=== PATIENT | male | born 1935 | race Caucasian/White ===

== ENCOUNTER 2024-11-25 20:28 | Inpatient (IN) | payer OTHER, MEDICARE ==
[2024-11-25 21:01] LABS: Absolute Lymphocytes (CBC) 0.7 K/uL (0.7-4.9); Hematocrit 46.1 % (39.6-49.0); Hemoglobin 15.4 g/dL (13.6-17.9); MCH 31.0 pg (27.0-35.0); MCHC 33.5 g/dL (32.0-36.0); MCV 92.5 fL (80-100); MPV 8.2 fL (7.6-11.3); Nucleated RBC Absolute Count 0.0 (0-0); Nucleated Red Blood Cells % 0.3 % (0-0); RBC Red Blood Cell Count 4.98 M/uL (4.33-5.43); White Blood Count 6.30 thou/uL (4.3-10.9)
[2024-11-25 21:08] LABS: PT Prothrombin Time 15.6 SECONDS (10-13.0); Protime INR 1.39
[2024-11-25 21:16] LABS: Influenza A Ag Negative; Influenza B Ag Negative
[2024-11-25 21:18] LABS: SARS-CoV-2 Antigen Rapid Res Positive (Negative)
[2024-11-25 21:21] LABS: ALT/SGPT 24.0 U/L (16-61); AST/SGOT 42.0 U/L (15-37); Albumin 2.9 g/dL (3.4-5.0); Albumin/Globulin Ratio 0.7 (1.1-1.8); Alkaline Phosphatase 60.0 U/L (45-117); Anion Gap 11.7 mEq/L (5.0-15.0); BUN Blood Urea Nitrogen 23.0 mg/dL (7-18); Bilirubin Indirect, Calculated 0.5 mg/dL (0.2-0.8); Globulin 3.9 g/dL (2.3-3.5); Glucose Level 101.0 mg/dL (74-106); Magnesium 1.9 mg/dL (1.6-2.4); NT PRO-BNP 4784.0 pg/mL (<450); Potassium 3.7 mEq/L (3.5-5.1)
[2024-11-25 21:29] LABS: Troponin High Sensitivity 84.9 pg/mL (<58.9)
[2024-11-25 21:51] LABS: White Blood Cell Scan OK (OK)
[2024-11-25 21:52] LABS: Anisocytosis SLIGHT; Blood Morphology Comment NOTED (NOT SEEN); Macrocytosis SLIGHT; Ovalocytes SLIGHT
[2024-11-25 22:13] LABS: Urine Microscopic Reflex YN NO UMIC
--- NOTE | 2024-11-25 22:30 | RAD REPORT ---
Procedure: Chest Single View HISTORY: Cough COMPARISON: none FINDINGS: The lungs appear clear of acute infiltrate. No significant pleural effusion noted. The heart is moderately enlarged. IMPRESSION: No acute abnormality is displayed.
--- NOTE | 2024-11-26 00:01 | RAD REPORT ---
PROCEDURE: CT Head Without Intravenous Contrast CLINICAL INDICATION: The patient is 89 years old and is Male; general weakness TECHNIQUE: Axial computed tomography images of the head/brain without intravenous contrast. Sagittal and coron al reformatted images were created and reviewed. This CT exam was performed using one or more of the following dose reduction techniques: automated exposure control, adjustment of the mA and/or kV according to patient size, and/or use of iterative reconstruction technique. DLP: 1529 mGy*cm COMPARISON: CT head without contrast dated 06/08/2023. FINDINGS: BRAIN: Cerebral volume loss, chronic small vessel ischemic changes and prior left frontal infarct.. No hemorrhage. No mass effect or midline shift. VENTRICLES: Unremarkable. No ventriculomegaly. BONES/JOINTS: Unremarkable. No acute fracture. SOFT TISSUES: Unremarkable. VASCULATURE: Vascular calcifications. SINUSES: Unremarkable as visualized. No acute sinusitis. MASTOID AIR CELLS: Unremarkable as visualized. No mastoid effusion. ORBITS: Prior cataract surgery. IMPRESSION: 1. No acute intracranial hemorrhage, hydrocephalus or herniation. 2. Cerebral volume loss, chronic small vessel ischemic changes and prior left frontal infarct.. C onsider MRI brain for further evaluation. Electronically signed by: Preston Saxena DO 11/25/2024 11:56 PM CDT RP 9 Due to temporary technical issues with the PACS/HALKAR reporting system, reports are being amrit d by the in-house radiologist without review as a courtesy to ensure prompt reporting the interpreting radiologist is fully responsible for the content of the report. Transcribed Date/Time: 11/26/2024 12:01 AM
--- NOTE | 2024-11-26 00:10 | ER ---
Nurse's Notes [facility] Name: Adarsh Steele Age: 89 yrs Sex: Male : 1935 Arrival Date: 11/25/2024 Time: 20:28 Bed 3 Private MD: Diagnosis: SARS-associated coronavirus as the cause of diseases classified elsewhere;Weakness Presentation: 11/25 20:56 Chief complaint: Spouse and/or significant other states: c/o cough, sneezing, weakness al5 since last night. Coronavirus screen: cough unrelated to allergies, sneezing, generalized weakness. Ebola Screen: No symptoms or risks identified at this time. Initial Sepsis Screen: Does the patient meet any 2 criteria? No. Patient's initial sepsis screen is negative. Does the patient have a suspected source of infection? No. Patient's initial sepsis screen is negative. Risk Assessment: Do you want to hurt yourself or someone else? Patient reports no desire to harm self or others. Onset of symptoms was November 24, 2024. 20:56 Method Of Arrival: Wheelchair al5 20:56 Acuity: CAREY 3 al5 Triage Assessment: 20:58 General: Appears in no apparent distress. comfortable, Behavior is calm, cooperative. al5 Pain: Denies pain. EENT: No signs and/or symptoms were reported regarding the EENT system. Neuro: Level of Consciousness is awake, alert, obeys commands, Oriented to person, place, time, situation, Vet Assistant are equal bilaterally Moves all extremities. Weakness Gait is unsteady, Speech is normal, Facial symmetry appears normal. Cardiovascular: Heart tones S1 S2 present Capillary refill < 3 seconds Patient's skin is warm and dry. Rhythm is atrial fibrillation. Respiratory: Reports cough that is non-productive, Airway is patent Respiratory effort is even, unlabored, Respiratory pattern is regular, symmetrical, Breath sounds are clear bilaterally. Onset: The symptoms/episode began/occurred yesterday, the patient has mild shortness of breath. GI: Abdomen is flat, non-distended. : No signs and/or symptoms were reported regarding the genitourinary system. Derm: Skin is intact, Skin is pink, warm \T\ dry. normal. Musculoskeletal: Circulation, motion, and sensation intact. Range of motion: intact in all extremities. Historical: - Allergies: 20:58 No Known Allergies; al5 - PMHx: 20:58 Atrial fibrillation; Hypercholesterolemia; Cerebrovascular accident; Seizure; al5 - PSHx: 20:58 None; al5 - Immunization history:: Adult Immunizations up to date. - Infectious Disease History:: Denies. - Social history:: Smoking status: Patient denies any tobacco usage or history of. Screenin:02 [facility] ED Fall Risk Assessment (Adult) History of falling in the last 3 months, al5 including since admission No falls in past 3 months (0 pts) Confusion or Disorientation No (0 pts) Intoxicated or Sedated No (0 pts) Impaired Gait Yes (1 pt) Mobility Assist Device Used Yes (1 pt) Altered Elimination No (0 pt) Score/Fall Risk Level 0 - 2 = Low Risk Oriented to surroundings, Maintained a safe environment, Hourly rounding (assess needs \T\ fall precautionary measures) done. Abuse screen: Denies threats or abuse. Denies injuries from another. Nutritional screening: No deficits noted. Tuberculosis screening: No symptoms or risk factors identified. Assessment: 21:02 Reassessment: see triage assessment. al5 22:09 Reassessment: Patient appears in no apparent distress at this time. No changes from al5 previously documented assessment. Patient and/or family updated on plan of care and expected duration. Pain level reassessed. Patient is alert, oriented x 3, equal unlabored respirations, skin warm/dry/pink. 23:31 Reassessment: Patient appears in no apparent distress at this time. No changes from al5 previously documented assessment. Patient and/or family updated on plan of care and expected duration. Pain level reassessed. Patient is alert, oriented x 3, equal unlabored respirations, skin warm/dry/pink. 17 00:47 Reassessment: Patient appears in no apparent distress at this time. No changes from al5 previously documented assessment. Patient and/or family updated on plan of care and expected duration. Pain level reassessed. Patient is alert, oriented x 3, equal unlabored respirations, skin warm/dry/pink. 01:30 Reassessment: Patient appears in no apparent distress at this time. No changes from al5 previously documented assessment. Patient and/or family updated on plan of care and expected duration. Pain level reassessed. Patient is alert, oriented x 3, equal unlabored respirations, skin warm/dry/pink. Vital Signs: 11/25 20:56 BP 171 / 88; Pulse 63; Resp 20; Temp 98.5(O); Pulse Ox 96% on R/A; Weight 95.25 kg; al5 Height 6 ft. 2 in. ; 21:00 BP 152 / 80; Pulse 60; Resp 19; Pulse Ox 95% on R/A; al5 21:30 BP 164 / 72; Pulse 63; Resp 19; Pulse Ox 96% on R/A; al5 22:00 BP 156 / 79; Pulse 61; Resp 20; Pulse Ox 96% on R/A; al5 22:30 BP 154 / 87; Pulse 55; Resp 16; Pulse Ox 96% on R/A; al5 23:10 BP 128 / 63; Pulse 67; Resp 20; Pulse Ox 96% on R/A; al5 23:30 BP 155 / 82; Pulse 70; Resp 18; Pulse Ox 97% on R/A; al5 11/26 00:00 BP 143 / 71; Pulse 60; Resp 18; Pulse Ox 96% on R/A; al5 00:30 BP 129 / 63; Pulse 71; Resp 17; Pulse Ox 95% on R/A; al5 01:00 BP 144 / 79; Pulse 69; Resp 20; Pulse Ox 95% ; al5 01:30 BP 150 / 92; Pulse 68; Resp 18; Pulse Ox 97% on R/A; al5 11/25 20:56 Body Mass Index 26.96 (95.25 kg, 187.96 cm) al5 ED Course: 11/25 20:30 Patient arrived in ED. jj6 20:34 Cesar Escobedo PA is PHCP. cp 20:34 Jc Santillan DO is Attending Physician. cp 20:34 Silvana Stephens, CANDICE is Primary Nurse. al5 20:58 Triage completed. al5 20:58 Arm band placed on right wrist. Patient placed in the treatment room, in view of staff al5 members, on monitoring analyst, on pulse oximetry. 21:02 Patient has correct armband on for positive identification. Bed in low position. Call al5 light in reach. Side rails up X 1. Provided Education on: plan of care. 21:02 No provider procedures requiring assistance completed. Inserted saline lock: 20 gauge al5 in right forearm, using aseptic technique. ,using aseptic technique. done by CANDICE Buchanan Blood collected. Flushed with 10 mL NS. 22:00 XRAY Chest (1 view) In Process Unspecified. EDMS 23:00 CT Head Brain wo Cont In Process Unspecified. EDMS 23:00 CT Chest For PE Angio In Process Unspecified. EDMS 11/26 00:09 Andrea Puri, CANDICE is Hospitalizing Provider. cp 01:40 Patient admitted, IV remains in place. al5 Administered Medications: No medications were administered Medication: 11/25 21:02 VIS not applicable for this client. al5 Outcome: 11/26 00:10 Decision to Hospitalize by Provider. cp 01:40 Admitted to Tele accompanied by nurse, family with patient, via stretcher, room 401, al5 with chart, :40 Condition: stable 01:40 Instructed on the need for admit, 02:23 Patient left the ED. al5 Signatures: Dispatcher [employer] EDMD Cesar Escobedo PA-C PA-C cp Jeffries, Jennifer jj6 Silvana Stephens RN RN al5 Corrections: (The following items were deleted from the chart) 02:23 02:21 Admitted to Tele accompanied by nurse, family with patient, via stretcher, room al5 401, with chart, al5 02:23 02:21 Condition: stable al5 al5 02:23 02:21 Instructed on the need for admit, al5 al5
--- NOTE | 2024-11-26 00:10 | EDPHYS ---
Physician Documentation [facility] Name: Adarsh Steele Age: 89 yrs Sex: Male : 1935 Arrival Date: 11/25/2024 Time: 20:28 Bed 3 Private MD: ED Physician Jc Santillan HPI: 11/25 20:45 This 89 yrs old Male presents to ER via Wheelchair with complaints of Shortness Of cp Breath, Cough, Congestion, Weakness. 20:45 The patient has shortness of breath with light activity. Onset: The symptoms/episode cp began/occurred this morning. Associated signs and symptoms: Pertinent positives: cough, chest congestion, general weakness. 20:45 Duration: The symptoms are continuous, and are steadily getting worse. Severity of cp symptoms: in the emergency department the symptoms are unchanged despite home interventions. Historical: - Allergies: 20:58 No Known Allergies; al5 - PMHx: 20:58 Atrial fibrillation; Hypercholesterolemia; Cerebrovascular accident; Seizure; al5 - PSHx: 20:58 None; al5 - Immunization history:: Adult Immunizations up to date. - Infectious Disease History:: Denies. - Social history:: Smoking status: Patient denies any tobacco usage or history of. ROS: 20:50 Neuro: Positive for weakness, Negative for altered mental status, dizziness, headache, cp syncope, 20:50 Eyes: Negative for injury, pain, redness, and discharge, cp 20:50 Constitutional: Negative for fever, poor PO intake, 20:50 ENT: Negative for drainage from ear(s), ear pain, sore throat, difficulty swallowing, difficulty handling secretions, 20:50 Cardiovascular: Negative for chest pain, palpitations, 20:50 Respiratory: Positive for cough, "sounds productive", shortness of breath, 20:50 Abdomen/GI: Negative for abdominal pain, vomiting, diarrhea, constipation, 20:50 Skin: Negative for cellulitis, rash, 20:50 All other systems are negative, Exam: 20:50 ECG was reviewed by the Attending Physician. cp 20:55 Head/Face: Normocephalic, atraumatic. cp 20:55 Constitutional: The patient appears in no acute distress, alert, awake, non-diaphoretic, non-toxic, well developed, well nourished, 20:55 Eyes: Periorbital structures: appear normal, Conjunctiva: normal, no exudate, no injection, Sclera: no appreciated abnormality, Lids and lashes: appear normal, bilaterally, 20:55 ENT: External ear(s): are unremarkable, Nose: is normal, Mouth: Lips: dry, Oral mucosa: moist, Posterior pharynx: Airway: no evidence of obstruction, patent, erythema, is not appreciated, exudate, is not appreciated, 20:55 Neck: ROM/movement: is normal, is supple, without pain, no range of motions limitations, no meningismus, 20:55 Chest/axilla: Inspection: normal, 20:55 Cardiovascular: Rate: normal, Rhythm: irregular, Edema: ankle edema, that is very mild, JVD: is not appreciated, 20:55 Respiratory: the patient does not display signs of respiratory distress, Respirations: labored breathing, is not present, shallow respirations, are not present, Breath sounds: bronchial sounds, that are mild, are heard diffusely, stridor, is not appreciated, wheezing: is not appreciated, 20:55 Abdomen/GI: Inspection: abdomen appears normal, Palpation: abdomen is soft and non-tender, in all quadrants, 20:55 Back: pain, is absent, ROM is normal, 20:55 Skin: cellulitis, is not appreciated, no rash present. 20:55 Neuro: Orientation: to person, place \\T\\ time. Mentation: is normal, Motor: moves all fours, strength is normal, Sensation: is normal, Gait: is unsteady, Vital Signs: 20:56 BP 171 / 88; Pulse 63; Resp 20; Temp 98.5(O); Pulse Ox 96% on R/A; Weight 95.25 kg; al5 Height 6 ft. 2 in. ; 21:00 BP 152 / 80; Pulse 60; Resp 19; Pulse Ox 95% on R/A; al5 21:30 BP 164 / 72; Pulse 63; Resp 19; Pulse Ox 96% on R/A; al5 22:00 BP 156 / 79; Pulse 61; Resp 20; Pulse Ox 96% on R/A; al5 22:30 BP 154 / 87; Pulse 55; Resp 16; Pulse Ox 96% on R/A; al5 23:10 BP 128 / 63; Pulse 67; Resp 20; Pulse Ox 96% on R/A; al5 23:30 BP 155 / 82; Pulse 70; Resp 18; Pulse Ox 97% on R/A; al5 11/26 00:00 BP 143 / 71; Pulse 60; Resp 18; Pulse Ox 96% on R/A; al5 00:30 BP 129 / 63; Pulse 71; Resp 17; Pulse Ox 95% on R/A; al5 01:00 BP 144 / 79; Pulse 69; Resp 20; Pulse Ox 95% ; al5 01:30 BP 150 / 92; Pulse 68; Resp 18; Pulse Ox 97% on R/A; al5 11/25 20:56 Body Mass Index 26.96 (95.25 kg, 187.96 cm) al5 MDM: 11/25 22:48 Medical Screening Exam initiated 11/26 00:10 Data reviewed: vital signs, nurses notes, lab test result(s), EKG, radiologic studies, cp CT scan, plain films, and as a result, I will admit patient. 00:10 I considered the following discharge prescriptions or medication management in the emergency department Medications were administered in the Emergency Department. See MAR. Independent interpretation of the following test(s) in the Emergency Department EKG: See my EKG interpretation above. 00:10 Counseling: I had a detailed discussion with the patient and/or guardian regarding the historical points, exam findings, and any diagnostic results supporting the discharge/admit diagnosis, lab results, radiology results. 00:10 Differential diagnosis: CHF exacerbation, Chronic Obstructive Pulmonary Disease cp Myocardial Infarction pneumonia, Pneumothorax pulmonary edema, Pulmonary Embolism Sepsis Unstable Angina. ED course: Vital signs stable. Initial and repeat troponins positive but no significant increase in the second troponin. Discussed these findings with the hospitalist, Mr Puri, who will admit for continued monitoring and trending of troponin. 11/25 20:43 Order name: Basic Metabolic Panel; Complete Time: 21:31 11/25 21:31 Interpretation: Normal except: CL 109; BUN 23; GFR 70. 11/25 20:43 Order name: CBC with Diff; Complete Time: 22:05 cp 11/25 20:43 Order name: LFT's; Complete Time: 21:31 cp 11/25 20:43 Order name: Magnesium; Complete Time: 21:31 cp 11/25 20:43 Order name: NT PRO-BNP; Complete Time: 21:31 cp 11/25 20:43 Order name: PT-INR; Complete Time: 21:31 cp 11/25 20:43 Order name: Troponin HS; Complete Time: 21:31 cp 11/25 20:43 Order name: COVID-19 Ag + Flu A+B Ag; Complete Time: 21:31 cp 11/25 20:43 Order name: UA Rfx Krishna Cult if indicated; Complete Time: 22:41 cp 11/25 20:43 Order name: Lactate w/ 2H reflex if indic.; Complete Time: 22:05 cp 11/25 21:04 Order name: CBC Smear Scan; Complete Time: 22:05 EDMS 11/25 21:32 Order name: D-Dimer; Complete Time: 22:05 cp 11/25 23:04 Order name: Troponin High Sensitivity; Complete Time: 00:04 cp 11/26 00:04 Interpretation: Reviewed. cp 11/26 01:07 Order name: C-Reactive Protein EDMS 11/26 01:07 Order name: C-Reactive Protein EDMS 11/26 01:07 Order name: C-Reactive Protein EDMS 11/26 01:07 Order name: CBC with Automated Diff EDMS 11/26 01:07 Order name: CBC with Automated Diff EDMS 11/26 01:07 Order name: CBC with Automated Diff EDMS 11/26 01:07 Order name: CBC with Automated Diff EDMS 11/26 01:12 Order name: Comprehensive Metabolic Panel EDMS 11/26 01:12 Order name: Comprehensive Metabolic Panel EDMS 11/26 01:12 Order name: Comprehensive Metabolic Panel EDMS 11/26 01:12 Order name: Comprehensive Metabolic Panel EDMS 11/26 01:12 Order name: Troponin High Sensitivity EDMS 11/26 01:12 Order name: Troponin High Sensitivity EDMS 11/26 01:12 Order name: Troponin High Sensitivity EDMS 11/26 01:12 Order name: Troponin High Sensitivity EDMS 11/25 20:43 Order name: XRAY Chest (1 view); Complete Time: 22:41 cp 11/25 22:06 Order name: CT Head Brain wo Cont cp 11/25 22:06 Order name: CT Chest For PE Angio cp 11/25 20:43 Order name: EKG; Complete Time: 20:44 cp 11/26 01:04 Order name: Physical Therapy Consult EDMS 11/26 01:12 Order name: EKG Electrocardiogram [facility] 11/26 01:12 Order name: EKG Electrocardiogram [facility] 11/26 01:12 Order name: EKG Electrocardiogram [facility] 11/26 01:12 Order name: EKG Electrocardiogram [facility] 11/25 20:43 Order name: Cardiac monitoring; Complete Time: 21:03 11/25 20:43 Order name: EKG - Nurse/Tech; Complete Time: 21:03 11/25 20:43 Order name: IV Saline Lock; Complete Time: 21:03 11/25 20:43 Order name: Labs collected and sent; Complete Time: 21:03 11/25 20:43 Order name: O2 Per Protocol; Complete Time: 21:03 11/25 20:43 Order name: O2 Sat Monitoring; Complete Time: 21:03 EC/16 20:50 Rate is 87 beats/min. Rhythm is irregular. QRS interval is prolonged at 162 msec. QT cp interval is normal. Clinical impression: Atrial Fibrillation. Interpreted by me. Reviewed by me. Administered Medications: No medications were administered Disposition: 11/26 02:40 I was immediately available on-site in the Emergency Department for consultation in the ms3 care of the patient. Disposition Summary: 11/26/24 00:10 Hospitalization Ordered Notes: Hospitalization Status: Inpatient Admission cp Provider: Andrea Puri cp Location: Telemetry/MedSurg (Inpatient) cp Condition: Stable cp Problem: new cp Symptoms: have improved cp Bed/Room Type: Standard Room Assignment: 401(11/26/24 01:06) rv1 Diagnosis - SARS-associated coronavirus as the cause of diseases classified elsewhere cp - Weakness cp Forms: - Medication Reconciliation Form cp - SBAR form cp - Leadership Thank You Letter cp Signatures: Dispatcher [employer] EDMS Cesar Escobedo PA-C PA-C cp Sims, Marcus, DO DO ms3 Rebecca Wray rv1 Silvana Stephens RN RN al5 Corrections: (The following items were deleted from the chart) 11/25 20:44 20:44 BASIC METABOLIC PANEL+C.LAB.BRZ ordered. EDMS EDMS 20:44 20:44 CBC+H.LAB.BRZ ordered. EDMS EDMS 20:44 20:44 HEPATIC FUNCTION+C.LAB.BRZ ordered. EDMS EDMS 20:44 20:44 MAGNESIUM+C.LAB.BRZ ordered. EDMS EDMS 20:44 20:44 PROBNP+C.LAB.BRZ ordered. EDMS EDMS 20:44 20:44 PROTIME (+INR)+COAG.LAB.BRZ ordered. EDMS EDMS 20:44 20:44 Troponin High Sensitivity+C.LAB.BRZ ordered. EDMS EDMS 20:44 20:44 COVID-19 Ag + Flu A+B Ag+I.LAB.BRZ ordered. EDMS EDMS 20:44 20:44 UA Rfx Krishna Cult if indicated+U.LAB.BRZ ordered. EDMS EDMS 20:44 20:44 LACTATE+C.LAB.BRZ ordered. EDMS EDMS 11/26 01:06 00:10 cp rv1
--- NOTE | 2024-11-26 00:39 | RAD REPORT ---
EXAM DESCRIPTION: CT CHEST ANGIOGRAPHY WITH IV CONTRAST CLINICAL HISTORY: 89 years Male Shortness of breath. COMPARISON: Radiograph of Chest performed on the same day and 02/04/2024 (Report only). TECHNIQUE: Images were obtained in axial, sagittal and coronal planes. Intravenous contrast was administered. 3- D MIP imaging was performed. This exam was performed according to our departmental dose-optimization program which includes use of Automated Exposure Control, adjustment of the mA and/ or kV according to patient size and/or use of iterative reconstruction technique. FINDINGS: No filling defects pulmonary arteries bilaterally. Aortic root is dilated measuring 4.5 cm in transve rse dimension. No aortic dissection. No right heart strain. Enlarged heart. No pericardial or pleural effusions bilaterally. No adenopathy. No lung parenchymal infiltrates or nodules seen. Airspace attenuation lower lobes bilaterally consist ent with atelectatic change. No pneumothorax. No lung parenchymal nodules seen. Increased pulmonary vascularity. No acute osseous abnormality. Unremarkable upper abdomen. IMPRESSION: No evidence for pulmonary embolus. 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 Atelectatic change lower lobes bilaterally. Electronically signed by: Amie Cummings MD 11/26/2024 12:16 AM CDT RP Due to temporary technical issues with the PACS/[employer] reporting system, reports are being amrit d by the in-house radiologist without review as a courtesy to ensure prompt reporting the interpreting radiologist is fully responsible for the content of the report. Transcribed Date/Time: 11/26/2024 12:39 AM
[2024-11-26] MEDS ORDERED: ALBUTEROL 2.5 MG/3 ML NEB SOL NEB PRN (01:05)
--- NOTE | 2024-11-26 01:44 | P.HP ---
Certification for Inpatient Patient admitted to: Inpatient With expected LOS: >2 Midnights Patient will require the following post-hospital care: None Practitioner: I am a practitioner with admitting privileges, knowledge of patient current condition, hospital course, and medical plan of care. Services: Services provided to patient in accordance with Admission requirements found in Title 42 Section 412.3 of the Code of Federal Regulations Patient History Date of Service: 11/26/24 Reason for admission: COVID-19 positive, and body weakness History of Present Illness: Patient is a pleasant 89 years old male with past medical history of diastolic CHF, essential hypertension, seizure disorder, hypercholesteremia, right arm essential tremors, brought to the ER due to body weakness, sneezing, and coughing nonproductive, with no associated chest pain. According to patient present at bedside, she states patient started coughing and sneezing yes terday nonproductive cough, with no associated shortness of breath, or chest pain, states today when patient attempted to get out of bed he was so weak, states that was out of the ordinary for the patient which then prompted her to bring the patient to the ER. Patient tested COVID- 19 positive. During admission assessment, patient denies of any chest pain, shortness of breath, patient respirations even and nonlabored, no tachycardia, lungs bilateral with no adventitious breath sounds, O2 saturation room air 96%-97%. Patient initial troponin was 84.0, BNP 4784, and EKG with no ST abnormalities. It is unsure if patient elevated troponin is more of a demand and supply related. (1) course in the ER: (1) CT head without intravenous contrast. Impression: (A) No acute intracranial hemorrhage, hydrocephalus or herniation. (B) Cerebral volume loss, chronic small vessel ischemic changes and prior left frontal infarct. Consider MRI brain for further evaluation. (2) CT chest angiography with IV contrast. Impression: (1) no evidence of pulmonary embolus. Dilated aortic root with no evidence of aortic dissection. Enlarged heart with mild congestive heart failure. Atelectatic change lower lobes bilateral. (3)Chest x- ray. Impression: No acute abnormality is displayed. Allergies No Known Allergies Allergy (Unverified 11/26/24 02:19) Home medications list reviewed: No - Past Medical/Surgical History Diabetic: No -: Atrial fibrillation. -: Diastolic CHF -: Seizure. -: Hypercholesteremia -: Stroke. -: Right shoulder surgery. - Family History Mother -: Cancer Brother -: Heart disease (Heart failure.), Hypertension - Social History Smoking Status: Never smoker Alcohol use: Yes CD- Drugs: No Caffeine use: Yes Place of Residence: Home Review of Systems 10-point ROS is otherwise unremarkable Respiratory: Cough (Nonproductive.), Other (Pulmonary congestion.) Physical Examination - Physical Exam General: Alert, In no apparent distress, Oriented x3, Cooperative HEENT: Atraumatic, Normocephalic, PERRLA, Other (Dry mucous membrane.), Sclerae nonicteric Neck: Supple, 2+ carotid pulse no bruit, No LAD, Without JVD or thyroid abnormality Respiratory: Clear to auscultation bilaterally, Normal air movement Cardiovascular: No edema, No gallops, No rubs, No murmurs, Irregular heart rate/rhythm (History of atrial fibrillation.) Capillary refill: <2 Seconds Gastrointestinal: Normal bowel sounds, Soft and benign, W/out hepatomegaly, No ascites, No tenderness, No masses, No rebound, No guarding Musculoskeletal: No clubbing, No swelling, No contractures, No erythema, No tenderness, No warmth, Other (Left arm essential tremor.) Integumentary: No rashes, No breakdown, No significant lesion, No tenderness/swelling, No erythema, No warmth, No cyanosis Neurological: Other (Body weakness, left arm essential tremor.) Lymphatics: No axilla or inguinal lymphadenopathy - Studies Laboratory Data (last 24 hrs) 11/25/24 11/25/24 11/25/24 20:46 20:46 20:46 WBC 6.30 Hgb 15.4 Hct 46.1 Plt Count 82 L PT 15.6 H INR 1.39 Sodium 140 Potassium 3.7 BUN 23 H Creatinine 1.03 Glucose 101 Magnesium 1.9 Total Bilirubin 0.7 AST 42 H ALT 24 Alkaline Phosphatase 60 Male Exam - Male Exam Inguinal exam: No hernias Assessment and Plan - Plan Patient is an 89-year-old male brought to the ER due to body weakness, coughing, sneezing, with no associated chest pain. Patient room air O2 sat is 96% to 97%. Patient admitted inpatient with diagnosis of COVID 19 positive, and body weakness. (1) COVID-19 positive. Patient not tachypneic, or respiratory distress. Respirations even and unlabored. Lungs bilateral with no adventitious breath sounds. -Order Paxlovid 150-100 milligram pack 2 tabs twice daily. -Albuterol inhaler 2 puffs every 6 hours as needed. -Oxygen supplement as needed if patient O2 saturation below 92%. -Remdesivir not appreciated at this time, patient is not hypoxic, no acute respiratory distress, bilateral lungs with no adventitious breath sounds. (2)Chronic diastolic CHF/Essential hypertension. -Continue home medication carvedilol 6.25 mg p.o. twice daily. -Continue spironolactone 12.5 mg p.o. daily. -Continue olmesartan 5 mg p.o. daily. (3)Chronic atrial fibrillation. -Eliquis 5 mg p.o. twice daily. (4)Chronic hypercholesteremia. -Continue atorvastatin 80 mg p.o. nightly. (5)Chronic seizure disorder. -Continue home medication divalproex sodium 500 mg p.o. twice daily. -Continue home medication zonisamide 100 mg p.o. 3 tablets every afternoon. (6)Eevated troponin with no associated chest pain, and EKG with no ST abnormality. -Order for troponin every 8 hours x 3. -Order EKG every 8 x 3. -Telemetry. -Continue to monitor patient for any change of condition. -Consult machine shop supervisor. -Morphine 2 mg IV as needed every 4 hours (7)Explained the entire treatment plan to the patient, , and daughter present at the bedside, solicit questions answered and voiced understanding. Discharge Plan: Home Plan to discharge in: 72 Hours - Advance Directives Does patient have a Living Will: No Does patient have a Durable POA for Healthcare: No - Code Status/Comfort Care Code Status Assessed: Yes Code Status: Full Code Critical Care: No Time Spent Managing Pts Care (In Minutes): 55
[2024-11-26] MEDS ORDERED: ALBUTEROL INHALER 200 PUFF/6.7 GM IH PRN (02:03)
[2024-11-26] MEDS: D5 0.45 NS 1,000 ML IV SCH (02:44)
[2024-11-26] MEDS ORDERED: MORPHINE 2 MG/ML SYR IV PRN (02:53)
[2024-11-26] MEDS: DIVALPROEX DR 500MG TAB PO SCH (09:49)
[2024-11-26] MEDS: APIXABAN 5 MG TABLET PO SCH (09:49)
[2024-11-26] MEDS: SPIRONOLACTONE 25 MG TABLET PO SCH (09:50)
[2024-11-26] MEDS: VALSARTAN 40 MG TAB PO SCH (09:53)
[2024-11-26] MEDS: NIRMATRELVIR/RITONAVIR TABLET PO SCH (09:54)
--- NOTE | 2024-11-26 15:45 | P.PN ---
Date of Service: 11/26/24 Patient seen and evaluated. Patient denied any shortness of breath. He feels he is getting stronger. He is stable on room air with good oxygen saturation. Plan: Continue Paxlovid Monitor respiratory status PT consult to evaluate functional status and for discharge planning. Continue home medications for seizures and hypertension. Continue Farxiga.
[2024-11-26] MEDS: ACETAMINOPHEN 325 MG TABLET PO PRN (20:06)
[2024-11-26] MEDS: ATORVASTATIN 80 MG TAB PO SCH (20:07)
--- NOTE | 2024-11-26 21:22 | CON ---
Date of Consultation: 11/26/2024 Reason For Consultation: Positive troponin. History Of Present Illness: An 89-year-old male with history of hypertension, diastolic heart failur e, dyslipidemia, presented to the emergency room with generalized weakness, sneezing, coughing, and d ry cough. No chest pain. Low-grade fevers present. Generally, he is weak. No nausea, vomiting, or diarrhea. No chest pain or shortness of breath. Past Medical History: As outlined above in the HPI including diastolic heart failure, hypertension, seizure disorder, dyslipidemia, and atrial fibrillation. Family History: No premature coronary artery disease or cancer. Medications: Refer reconsultation sheet for detailed list. Allergies: NO KNOWN DRUG ALLERGIES. Social History: Does not smoke or drink. Does not use any drugs. Review of Systems: All systems reviewed and they are negative except as mentioned in the HPI. Physical Examination: Vital Signs: Reviewed. Head and Neck: Pupils are equal, reactive to light. Intact eye movements. No JVD. No cervical lym phadenopathy. Neck is supple. Thyroid is not enlarged. Lungs: Clear to auscultation bilaterally. No rhonchi, wheezing, or crackles. No accessory muscle u se. Heart: Regular rate and rhythm. No extra sounds. Abdomen: Soft, nontender. Bowel sounds positive. No organomegaly. No masses or hernia. No rigidi ty or rebound. Extremities: No edema, clubbing, or cyanosis. Intact pulses. Skin: No rash. No nodules. Neurologic: Alert, awake, oriented x3. No acute focal deficits appreciated. Investigations: Troponin peaked at 91. BUN is 23, creatinine 1.03, and hemoglobin is 15.4. Assessment And Recommendations: 1. Elevated troponin and no chest pain. This is due to COVID. No further cardiac workup is needed. Plan for outpatient echo and stress test once the COVID infection is cleared. 2. Hypertension. Blood pressure is controlled. 3. Dyslipidemia. Continue statin. Cardiology will sign off, especially there is no delta on that tr oponin and the patient has no chest pain. Follow up on outpatient basis post discharge. SR/MODL Voice ID: [id number] Report ID: [id number]
[2024-11-27 02:25] VITALS: BMI 26.9
[2024-11-27 06:24] LABS: Absolute Lymphocytes (CBC) 1.5 K/uL (0.7-4.9); Hematocrit 41.8 % (39.6-49.0); Hemoglobin 13.9 g/dL (13.6-17.9); MCH 30.8 pg (27.0-35.0); MCHC 33.2 g/dL (32.0-36.0); MCV 92.7 fL (80-100); MPV 8.0 fL (7.6-11.3); Nucleated RBC Absolute Count 0.0 (0-0); Nucleated Red Blood Cells % 0.2 % (0-0); RBC Red Blood Cell Count 4.51 M/uL (4.33-5.43); White Blood Count 5.70 thou/uL (4.3-10.9)
[2024-11-27 06:30] LABS: AST/SGOT 44.0 U/L (15-37); Anion Gap 8.2 mEq/L (5.0-15.0); BUN Blood Urea Nitrogen 26.0 mg/dL (7-18); Glucose Level 90.0 mg/dL (74-106); Potassium 3.2 mEq/L (3.5-5.1)
[2024-11-27 06:31] LABS: ALT/SGPT 26.0 U/L (16-61); Albumin 2.2 g/dL (3.4-5.0); Albumin/Globulin Ratio 0.7 (1.1-1.8); Alkaline Phosphatase 39.0 U/L (45-117); C-Reactive Protein 72.7 mg/L (<3.00); Globulin 3.2 g/dL (2.3-3.5)
[2024-11-27 08:40] VITALS: O2SAT 96
[2024-11-27] MEDS: POTASSIUM 25 MEQ EFFERV TAB PO ONE (08:54)
[2024-11-27 16:07] VITALS: BP 129/81; TEMP 98
== END 2024-11-27 18:02 | disposition home or self-care (01) | DRG 178 ==
LOC: ER 20:28 → 4TH 11-26 00:56
PROVIDERS: ADMIT Internal Medicine; ATTEND Hospitalist
DX: U07.1 COVID-19 (principal); I48.20 Chronic atrial fibrillation, unspecified; I50.32 Chronic diastolic (congestive) heart failure; I11.0 Hypertensive heart disease with heart failure; E78.00 Pure hypercholesterolemia, unspecified; G40.909 Epilepsy, unspecified, not intractable, without status epilepticus; R79.89 Other specified abnormal findings of blood chemistry; Z86.73 Personal history of transient ischemic attack (TIA), and cerebral infarction without residual deficits; Z23 Encounter for immunization; G25.0 Essential tremor; Z98.890 Other specified postprocedural states
CPT/HCPCS: 36415; 70450; 71045; 71275; 80048; 80053; 80076; 81003; 83605; 83735; 83880; 84484; 85025; 85379; 85610; 86140; 87428; 93005; 97116; 97161; 99285; J7799; J8499; Q9967